=== PATIENT | female | born 1960 | race Caucasian/White ===

== ENCOUNTER 2022-09-24 17:40 | Emergency (ER) | payer MEDICAID ==
[~2022-09-24] VITALS: Ht 162.6 cm; Wt 81.6 kg
[2022-09-24] MEDS ORDERED: HYDROCODONE/APAP 5/325MG TABLET PO ONE (19:30)
--- NOTE | 2022-09-24 19:43 | NUR ---
BROUGHT PT IN FROM WAITING ROOM. BIB RA FROM HOME C/O PAIN/BRUISE IN LEFT AC FROM PERIPHERAL IV ON 09/18/22 DURING HER CHOLECYSTECTOMY IN [facility]. PATIENT IS ALSO COMPLAINING OF PAIN ON LEFT LEG. NO HX OF GLF. PLACED COMFORTABLY IN BED. VITALS CHECKED.
[2022-09-24] MEDS ORDERED: HYDROCODONE/APAP 5/325MG TABLET ONE (19:52)
--- NOTE | 2022-09-24 20:14 | NUR ---
DON OLIVER AT BEDSIDE
[2022-09-24] MEDS ORDERED: APIX5TAB4 PO (21:40)
--- NOTE | 2022-09-24 21:56 | NUR ---
Patient discharged to home in stable condition. Written and verbal after care instructions given. Patient verbalizes understanding of instruction.
[2022-09-24 23:33] VITALS: BP 135/75
== END 2022-09-24 23:33 | disposition home or self-care (01) ==
LOC: ER 18:52
DX: I82.402 Acute embolism and thrombosis of unspecified deep veins of left lower extremity (principal); M79.602 Pain in left arm; I10 Essential (primary) hypertension; F41.9 Anxiety disorder, unspecified; F32.A Depression, unspecified; Z90.49 Acquired absence of other specified parts of digestive tract
CPT/HCPCS: 93971-TC